=== PATIENT | male | born 1940 | race Caucasian/White ===

== ENCOUNTER 2023-02-27 18:30 | Inpatient (IN) ==
[2023-02-27] MEDS ORDERED: oxyCODONE IR 5 MG TABLET PO PRN (18:47)
[2023-02-27] MEDS ORDERED: ONDANSETRON 4 MG/2 ML VIAL IV PRN (18:47)
[2023-02-27] MEDS ORDERED: ACETAMINOPHEN 325 MG TABLET PO PRN (18:47)
[2023-02-27] MEDS ORDERED: MAGNESIUM HYDROXIDE 30 ML ORAL.SUSP PO PRN (18:47)
[2023-02-27] MEDS ORDERED: KETOROLAC 10 MG TABLET PO PRN (18:47)
[2023-02-27] MEDS: 0.9 % SODIUM CHLORIDE 10 ML SYRINGE IV SCH (21:01)
[2023-02-27] MEDS: LACTATED RINGERS 1,000 ML IV SCH (21:30)
[2023-02-27] MEDS: FAMOTIDINE 20 MG TABLET PO SCH (21:58)
[2023-02-28] MEDS: 0.9 % SODIUM CHLORIDE 10 ML SYRINGE IV SCH ×3 (04:01→21:57)
[2023-02-28] MEDS ORDERED: SCOPOLAMINE 1 PATCH PATCH TOPICAL PRN (05:00)
[2023-02-28] MEDS: HYDROmorphone 0.5 MG/0.5 ML SYRINGE IV PRN (05:25)
[2023-02-28 06:53] LABS: Basophils # (Auto) 0.04 K/mcL (0.00-0.30); Basophils % (Auto) 0.4 % (0.0-2.0); Eosinophils # (Auto) 0.07 K/mcL (0.00-0.70); Eosinophils % (Auto) 0.7 % (0.0-7.0); Hematocrit 30.8 % (40.1-51.0); Hemoglobin 9.8 g/dL (13.7-17.5); Lymphocytes # (Auto) 0.78 K/mcL (1.50-4.80); Lymphocytes % (Auto) 7.7 % (15.5-49.0); Mean Cell Volume 95.1 fL (80.0-100.0); Mean Corpuscular HGB Conc 31.8 g/dL (31.0-36.0); Mean Platelet Volume 11.3 fL (8.8-12.5); Monocytes # (Auto) 0.94 K/mcL (0.10-0.90); Monocytes % (Auto) 9.3 % (1.0-12.0); Neutrophils % (Auto) 81.5 % (38.0-78.0); Platelet Count 171 K/mcL (140-440); RBC 3.24 M/mcL (4.63-6.08); Red Cell Distribution Width 14.4 % (11.5-14.5); WBC 10.1 K/mcL (4.5-11.0)
[2023-02-28] MEDS: FAMOTIDINE 20 MG TABLET PO SCH ×2 (07:06→21:52)
[2023-02-28 07:13] LABS: ALT/SGPT 19 U/L (<40); AST/SGOT 29 U/L (<40); Albumin 3.3 gm/dL (3.2-5.2); Albumin/Globulin Ratio 1.3 (1.0-2.3); Alkaline Phosphatase 91 U/L (39-117); Bilirubin,Total 0.9 mg/dL (0.1-1.0); Blood Urea Nitrogen 22 mg/dL (8-23); Carbon Dioxide 24 mmol/L (22-30); Chloride 101 mmol/L (96-108); Globulin 2.6 gm/dL (2.2-3.7); Glomerular Filtration Rate 63; Glucose 122 mg/dL (70-105)
[2023-02-28] MEDS: LACTATED RINGERS 1,000 ML IV SCH ×2 (10:16→21:57)
[2023-02-28] MEDS ORDERED: ceFAZolin 2 GM in DEXTROSE 5% IN WATER 50 ML IV SCH ×2 (15:15→18:30)
[2023-02-28] MEDS ORDERED: ROCURONIUM 10 MG/ML ML IV ONE (17:09)
[2023-02-28] MEDS ORDERED: PROPOFOL 200 MG/20 ML VIAL IV ONE (17:09)
[2023-02-28] MEDS ORDERED: ONDANSETRON 4 MG/2 ML VIAL ONE (17:09)
[2023-02-28] MEDS ORDERED: fentaNYL 100 MCG/2 ML VIAL IV ONE (17:09)
[2023-02-28] MEDS ORDERED: PHENYLephrine 1 MG/10 ML SYRINGE (ANEST) ONE (18:02)
[2023-02-28] MEDS ORDERED: IPRATROPIUM/ALBUTEROL 3 ML AMPUL.NEB NEB PRN (18:03)
[2023-02-28] MEDS ORDERED: NALOXONE HCL 0.4 MG/ML VIAL IV PRN (18:03)
[2023-02-28] MEDS ORDERED: fentaNYL 100 MCG/2 ML VIAL IV PRN (18:03)
[2023-02-28] MEDS ORDERED: ONDANSETRON 4 MG/2 ML VIAL IV PRN (18:03)
[2023-02-28] MEDS ORDERED: ACETAMINOPHEN 1,000 MG/100 ML BAG IV ONE ×2 (18:03→19:08)
[2023-02-28] MEDS ORDERED: SUGAMMADEX SODIUM 200 MG/2 ML VIAL IV ONE (18:12)
[2023-02-28] MEDS ORDERED: BENZOCAINE/MENTHOL 1 LOZENGE PO PRN (18:22)
[2023-02-28] MEDS ORDERED: ASPIRIN 325 MG ENTERIC COATED TABLET PO SCH (21:00)
[2023-02-28] MEDS: SENNOSIDES 1 TABLET PO SCH (21:56)
[2023-02-28] MEDS: DOCUSATE SODIUM 100 MG CAPSULE PO SCH (21:57)
[2023-03-01] MEDS: HYDROmorphone 0.5 MG/0.5 ML SYRINGE IV PRN ×2 (02:16→05:22)
[2023-03-01] MEDS: METHOCARBAMOL 750 MG TABLET PO PRN ×2 (02:17→16:44)
[2023-03-01] MEDS: ceFAZolin 1 GM VIAL IV SCH ×2 (02:17→09:06)
[2023-03-01] MEDS: LACTATED RINGERS 1,000 ML IV SCH ×2 (03:33→14:40)
[2023-03-01] MEDS: 0.9 % SODIUM CHLORIDE 10 ML SYRINGE IV SCH ×3 (04:26→21:26)
[2023-03-01 06:51] LABS: INR 1.1 (0.9-1.1); Prothrombin Time 14.9 sec (11.9-14.5)
[2023-03-01] MEDS: ASPIRIN 81 MG TAB.CHEW PO SCH ×2 (08:03→21:27)
[2023-03-01] MEDS: DOCUSATE SODIUM 100 MG CAPSULE PO SCH ×2 (08:05→21:27)
[2023-03-01] MEDS: FAMOTIDINE 20 MG TABLET PO SCH ×2 (08:05→21:27)
[2023-03-01 08:24] LABS: Basophils # (Auto) 0.04 K/mcL (0.00-0.30); Basophils % (Auto) 0.4 % (0.0-2.0); Eosinophils # (Auto) 0.18 K/mcL (0.00-0.70); Eosinophils % (Auto) 1.7 % (0.0-7.0); Hematocrit 28.7 % (40.1-51.0); Lymphocytes # (Auto) 0.94 K/mcL (1.50-4.80); Lymphocytes % (Auto) 8.8 % (15.5-49.0); Mean Corpuscular HGB Conc 31.4 g/dL (31.0-36.0); Mean Platelet Volume 11.2 fL (8.8-12.5); Monocytes # (Auto) 0.97 K/mcL (0.10-0.90); Monocytes % (Auto) 9.1 % (1.0-12.0); Neutrophils % (Auto) 79.8 % (38.0-78.0); Platelet Count 145 K/mcL (140-440); RBC 2.96 M/mcL (4.63-6.08); Red Cell Distribution Width 14.4 % (11.5-14.5); WBC 10.7 K/mcL (4.5-11.0)
[2023-03-01] MEDS: HYDROCODONE/APAP 7.5/325MG TABLET PO PRN (09:07)
[2023-03-01 10:03] LABS: ALT/SGPT 15 U/L (<40); AST/SGOT 27 U/L (<40); Albumin 3.1 gm/dL (3.2-5.2); Alkaline Phosphatase 79 U/L (39-117); Bilirubin,Total 0.5 mg/dL (0.1-1.0); Blood Urea Nitrogen 23 mg/dL (8-23); Calcium 8.9 mg/dL (8.6-10.4); Carbon Dioxide 22 mmol/L (22-30); Chloride 104 mmol/L (96-108); Glomerular Filtration Rate 57; Glucose 113 mg/dL (70-105)
[2023-03-01] MEDS: 0.9 % SODIUM CHLORIDE 1,000 ML IV SCH (21:26)
[2023-03-01] MEDS: SENNOSIDES 1 TABLET PO SCH (21:27)
[2023-03-02] MEDS: HYDROCODONE/APAP 7.5/325MG TABLET PO PRN ×2 (00:44→08:11)
[2023-03-02] MEDS: METHOCARBAMOL 750 MG TABLET PO PRN ×2 (00:45→08:11)
[2023-03-02] MEDS: 0.9 % SODIUM CHLORIDE 10 ML SYRINGE IV SCH (04:04)
[2023-03-02] MEDS: 0.9 % SODIUM CHLORIDE 1,000 ML IV SCH (07:42)
[2023-03-02] MEDS: DOCUSATE SODIUM 100 MG CAPSULE PO SCH (08:11)
[2023-03-02] MEDS: ASPIRIN 81 MG TAB.CHEW PO SCH (08:11)
[2023-03-02] MEDS: FAMOTIDINE 20 MG TABLET PO SCH ×2 (08:11→08:15)
[2023-03-02 08:48] LABS: INR 1.1 (0.9-1.1); Prothrombin Time 14.8 sec (11.9-14.5)
== END 2023-03-02 11:33 | DRG 481 ==
LOC: MEDSUR 20:25
PROVIDERS: ADMIT Internal Medicine; ATTEND Internal Medicine